=== PATIENT | female | born 1985 | race Caucasian/White ===

== ENCOUNTER 2020-03-31 22:04 | Emergency (ER) | payer BC, OTHER ==
[2020-03-31] MEDS ORDERED: ONDANSETRON INJ 4 MG/2 ML VIAL IV ONE (22:08)
[2020-03-31] MEDS ORDERED: HYDROmorphone HCL INJ 2 MG/ML VIAL IV ONE ×2 (22:08→23:05)
[2020-03-31] MEDS ORDERED: ONDANSETRON INJ 4 MG/2 ML VIAL ONE (22:10)
[2020-03-31] MEDS ORDERED: HYDROmorphone HCL INJ 2 MG/ML VIAL ONE ×2 (22:10→23:09)
[2020-03-31] MEDS ORDERED: ceFAZolin SODIUM 2 GM in SODIUM CHLORIDE 0.9% 100ML 100 ML IVPB ONE (22:13)
[2020-03-31] MEDS ORDERED: TETANUS-DIPHTHERIA TOXOIDS (TD) SYG IM ONE (22:14)
--- NOTE | 2020-03-31 22:17 | ED.PDOC ---
History of Present Illness - General Time Seen by Provider: 03/31/20 22:13 Additional Information: Patient is a 34-year-old female who presents to the ED with chief complaint of left ankle injury. Patient was walking on a dirt road and stepped on an irregular surface and rolled her ankle. Her entire weight came down on the ankle and she felt a pop and immediate pain. She is unable to weight-bear on the leg. Patient has no other injuries or no other symptoms other than severe ankle pain. - History of Present Illness Allergies/Adverse Reactions: Allergies NO KNOWN ALLERGY Allergy (Verified 07/03/15 08:57) Home Medications: Ambulatory Orders Lisdexamfetamine Dimesylate [Vyvanse] 40 mg PO DAILY 07/03/15 HYDROcodone 10MG/APAP 325MG [[place] 10325] 1 ea PO Q6H PRN #20 tab 03/31/20 Review of Systems - Review of Systems Constitutional: States: no symptoms reported EENTM: States: no symptoms reported Respiratory: States: no symptoms reported. Denies: cough, short of breath Cardiology: States: no symptoms reported. Denies: chest pain, palpitations Gastrointestinal/Abdominal: States: no symptoms reported. Denies: abdominal pain Musculoskeletal: States: see HPI, joint pain Skin: States: no symptoms reported All other Systems: Reviewed and Negative Past Medical History (General) - Vaccination History Hx Influenza Vaccination: Yes - 2014 - Social History Hx Tobacco Use: No Family Medical History - Family History Mother Family History: Unknown Living Status: Unknown Physical Exam - Physical Exam General Appearance: Alert, Obvious distress, Obese Eyes, Ears, Nose, Throat: normal ENT inspection Neck: supple, normal inspection Cardiovascular/Respiratory: regular rate, rhythm, no M/R/G, normal peripheral pulses, normal breath sounds, no respiratory distress Leg: normal inspection, non-tender Knee: normal inspection, non-tender, no evidence of injury Ankle: other - Obvious deformity to left ankle. Skin over the ankle mortise anteriorly has an abrasion versus a small laceration Foot: normal inspection, non-tender, no evidence of injury, other - 1+ DP pulse right foot. No palpable pulse appreciated in the left DP. Mental Status: alert, oriented x 3 Skin: normal color, warm/dry Progress - Progress Progress: 03/31/20 22:22 Differential diagnosis includes but is not limited to fracture, dislocation, sprain, vascular injury. 03/31/20 23:09 Patient's ankle easily reduced with gentle axial traction using procedural sedation with ketamine and propofol. The wound to the dorsum of the ankle was thoroughly cleaned with saline and the wound is a simple abrasion only, the skin is completely intact. Post-reduction exam reveals similar 1+ DP pulses bilaterally. Her capillary refill is less than 2 seconds. Patient placed in a short leg posterior splint. I discussed with patient and with that she has an unstable fracture and will require surgery. I will refer her to the local orthopedist, Dr. Monreal, and will call on Thursday to make an appointment for Thursday or Thursday for reevaluation and definitive management. I will discharge with analgesics. Vital signs stable, patient is NAD and looks clinically well and I believe is safe for discharge with outpatient follow-up. Follow-up instructions, discharge instructions and return to ED precautions discussed with patient. Patient voices understanding and willingness to comply with instructions. All questions answered. Patient and are happy with plan. Procedures - Joint Reduction left ankle Conscious Sedation: Yes - With ketamine and propofol, 0.5 mg/kg each. Reduction Attempts: 1 Pre-Procedure NV Exam: Yes Post Joint Reduction Film: joint reduced Departure - Departure Clinical Impression: Dislocation of ankle, left, closed Qualifiers: Encounter type: initial encounter Qualified Code(s): S93.05XA - Dislocation of left ankle joint, initial encounter Fracture of distal end of left fibula Qualifiers: Encounter type: initial encounter Fracture type: closed Fracture morphology: unspecified fracture morphology Qualified Code(s): S82.832A - Other fracture of upper and lower end of left fibula, initial encounter for closed fracture Time of Disposition: 23:16 Disposition: Discharge to Home or Self Care Condition: Good Instructions: Ankle Fracture (DC) Activity: other - Strict nonweightbearing to left foot and ankle. Keep the ankle elevated as much as possible. Referrals: Zev Monreal MD [Active Staff] - 1-2 Days (Call the referral orthopedic physician's office on Thursday morning to make an appointment for reevaluation on Thursday or Thursday.) Prescriptions: HYDROcodone 10MG/APAP 325MG [[place] 10/325] 1 ea PO Q6H PRN #20 tab PRN Reason: Pain Home Medications: Ambulatory Orders Lisdexamfetamine Dimesylate [Vyvanse] 40 mg PO DAILY 07/03/15 HYDROcodone 10MG/APAP 325MG [[place] ] 1 ea PO Q6H PRN #20 tab 03/31/20 Additional Instructions: As discussed, your ankle fracture will require surgery and it is very important that you follow-up with the orthopedic doctor as directed.
[2020-03-31] MEDS ORDERED: KETAMINE HCL 100 MG/ML VIAL IV ONE (22:20)
[2020-03-31] MEDS ORDERED: PROPOFOL 200 MG/20 ML VIAL IV ONE ×2 (22:20→22:23)
[2020-03-31] MEDS ORDERED: KETAMINE HCL 100 MG/ML VIAL ONE (22:23)
[2020-03-31] MEDS ORDERED: SODIUM CHLORIDE 0.9% 1000ML 1,000 ML ONE (22:24)
[2020-03-31] MEDS ORDERED: SODIUM CHLORIDE 0.9% 1000ML 1,000 ML IVS ONE (22:30)
[2020-03-31] MEDS ORDERED: ceFAZolin SODIUM 1 GM VIAL ONE (23:09)
[2020-03-31] MEDS ORDERED: HYDROCOD/APAP 10/325 (ER DISP) # 3 tablets PO ONE (23:30)
--- NOTE | 2020-03-31 23:41 | RAD ---
EXAM: X-ray ankle two views left CLINICAL DATA: Status post reduction TECHNICAL DATA: Two x-ray views of the left ankle were performed on 03/31/2020 at 11:18 PM. COMPARISONS: 03/31/2020 at 10:14 PM FINDINGS: Since the previous study there has been interval closed reduction of the displaced, comminuted angulated fracture through the distal fibular diaphysis. There is improved alignment of the fracture fragments without significant angulation or displacement at this time. The ankle joint appears intact. There is a tiny plantar spur. Bone mineralization is normal. IMPRESSION: Satisfactory closed reduction of the displaced, comminuted angulated fracture through the distal fibular diaphysis with improved alignment of the fracture fragments. Electronically signed by: Mariposa Wolf DO 03/31/2020 11:40 PM CDT
--- NOTE | 2020-03-31 23:44 | RAD ---
EXAM DESCRIPTION: Foot,Left 2 Views CLINICAL HISTORY: 34 years ,Female trauma COMPARISON: None. TECHNIQUE: LEFT foot, two view FINDINGS: There is an obliquely oriented fracture of the distal fibula. Soft tissue swelling around the ankle. No additional fracture in the foot. IMPRESSION: Obliquely oriented distal fibular fracture with mild posterior displacement Electronically signed by: Emma Guallpa MD 03/31/2020 11:43 PM CDT
--- NOTE | 2020-03-31 23:47 | RAD ---
EXAM DESCRIPTION: Ankle,Left 2 Views CLINICAL HISTORY: 34 years ,Female Trauma COMPARISON: 07/03/2015. TECHNIQUE: LEFT ankle, two view FINDINGS: There is a fracture of the distal fibular diaphysis with posterior angulation and displacement of the distal fracture fragments. A direct AP projection was not provided. There also appears to be dislocation of the foot with respect to the distal tibia with the foot displaced posteriorly and suspect laterally. Recommend AP view. IMPRESSION: Fracture dislocation at the ankle with dislocation of the foot with respect to the distal tibia as well as comminuted distal fibular diaphyseal fracture. Recommend AP view of the ankle Electronically signed by: Emma Guallpa MD 03/31/2020 11:46 PM CDT
[2020-03-31 23:56] VITALS: BP 126/80; TEMP 97.1; O2SAT 98
== END 2020-03-31 23:50 | disposition home or self-care (01) ==
LOC: ER 22:04
DX: S82.832A Other fracture of upper and lower end of left fibula, initial encounter for closed fracture (principal); X50.9XXA Other and unspecified overexertion or strenuous movements or postures, initial encounter; Y93.01 Activity, walking, marching and hiking; Y92.410 Unspecified street and highway as the place of occurrence of the external cause; Z23 Encounter for immunization

== ENCOUNTER 2020-04-10 05:31 | Day surgery (SDC) | payer BC, OTHER ==
[2020-04-10] MEDS ORDERED: SODIUM CHL 0.9% 100ML MINI-BAG 100 ML IVPB ONE (05:51)
[2020-04-10] MEDS ORDERED: ceFAZolin SODIUM 1 GM VIAL ONE ×2 (05:52→06:26)
[2020-04-10] MEDS ORDERED: LACTATED RINGERS 1,000 ML ONE (05:52)
[2020-04-10] MEDS ORDERED: BUPIVACAINE LIPOSOME 13.3 MG/ML VIAL INJ ONE ×3 (06:26→06:51)
[2020-04-10] MEDS ORDERED: BUPIVACAINE 0.5% 30 ML VIAL INJ ONE ×3 (06:26→06:51)
[2020-04-10] MEDS ORDERED: VANCOMYCIN HCL INJ 1,000 MG VIAL IVPB ONE ×4 (06:26→07:04)
[2020-04-10] MEDS ORDERED: DEXMEDETOMIDINE HCL 200 MCG/2 ML INJ IV ONE (06:33)
[2020-04-10] MEDS ORDERED: KETAMINE HCL 100 MG/ML VIAL ONE (06:33)
[2020-04-10] MEDS ORDERED: MIDAZOLAM INJ 5 MG/5 ML VIAL ONE (06:33)
[2020-04-10] MEDS ORDERED: FAMOTIDINE INJ 10 MG/ML VIAL IV ONE (06:33)
[2020-04-10] MEDS ORDERED: HYDROmorphone HCL INJ 2 MG/ML VIAL ONE ×2 (06:33→09:47)
[2020-04-10] MEDS ORDERED: LACTATED RINGERS 1,000 ML IVS ONE (06:38)
[2020-04-10] MEDS ORDERED: ceFAZolin SODIUM 1 GM VIAL IRRIG ONE ×2 (06:41→06:51)
[2020-04-10] MEDS ORDERED: diphenhydrAMINE HCL 50 MG/ML VIAL ONE (07:00)
[2020-04-10] MEDS ORDERED: PROPOFOL 200 MG/20 ML VIAL IV ONE (07:00)
[2020-04-10] MEDS ORDERED: MAGNESIUM SULFATE INJ 1 GM/2 ML VIAL ONE (07:00)
[2020-04-10] MEDS ORDERED: DEXAMETHASONE INJ 10 MG/ML VIAL ONE (07:00)
[2020-04-10] MEDS ORDERED: SODIUM CHLORIDE 0.9% 50 ML VIAL ONE (07:00)
[2020-04-10] MEDS ORDERED: LIDOCAINE 1% 10 ML VIAL INJ ONE (07:00)
[2020-04-10] MEDS ORDERED: SODIUM CHLORIDE 0.9% 250ML 250 ML ONE (07:22)
[2020-04-10] MEDS ORDERED: LACTATED RINGERS 600 ML IVS ONE (09:23)
[2020-04-10] MEDS ORDERED: fentaNYL CITRATE INJ 50 MCG/ML 2 ML AMP ONE (09:46)
--- NOTE | 2020-04-10 10:13 | RAD ---
EXAM DESCRIPTION: Left ankle, 2 radiographs CLINICAL HISTORY: Fracture fixation of the ankle FINDINGS/ IMPRESSION: Comparison 03/31/2020. Plate and screw fixation of the fibula with good anatomic alignment. 2 syndesmotic screws traverse the lower tibia Ankle mortise is symmetric. No focal osteochondral lesion of the ankle. Soft tissue swelling Electronically signed by: Geo Li MD 04/10/2020 10:11 AM CDT
[2020-04-10] MEDS ORDERED: HYDROcodone 5MG/APAP 325MG 1 EA TAB ONE (10:51)
[2020-04-10] MEDS ORDERED: HYDROcodone 5MG/APAP 325MG 1 EA TAB PO ONE (10:55)
[2020-04-10 12:08] VITALS: BP 138/85; TEMP 99.1; O2SAT 93
--- NOTE | 2020-04-11 09:08 | OP ---
DATE OF PROCEDURE: 04/10/20 PREOPERATIVE DIAGNOSIS: 1. Left distal fibula fracture with disruption of the syndesmosis. POSTOPERATIVE DIAGNOSIS: 1. Left distal fibula fracture with disruption of the syndesmosis. PROCEDURE: 1. ORIF of the fibula. SURGEON: Zev Monreal MD BICYCLE SUBASSEMBLER: Abhay Damon CST, SA-C ANESTHESIA: General. COMPLICATIONS: None. FINDINGS: Comminuted fracture of the distal fibular shaft with butterfly fragment. INDICATION: Ms. Mcmillan has a history of a twisting injury about a week before. She had the acute onset of pain at that time. After x-rays, she presented to my clinic and we discussed her condition as well as the risks, benefits and alternatives to operative therapy. She gave informed for ORIF. PROCEDURE: The patient was brought to the Operating Room and placed in supine position. General anesthesia was induced. The patient's leg was sterilely prepped and draped. An incision was made on the lateral aspect of the fibula directly in line with the fracture site. Careful dissection was used to expose the fracture site. Once this had been exposed and debrided, 2 lag screws from anterior to posterior were used to approximate the proximal [address] was paced on the most distal fragment and used to reduce the fracture in an anatomic position. The screw lengths were checked under fluoroscopic imaging. Once the plate had been applied and the screw holes filled, the ankle was stressed under direct fluoroscopic imaging. The syndesmosis did widen at the time and, therefore, I elected to place 2 syndesmosis screws from lateral to medial. After that, the ankle was again stressed and there was no widening of the mortise. The wound was very thoroughly irrigated and closed with a combination of running and interrupted subcuticular stitches. Sterile dressings were placed. The patient was placed in a splint, awoken from anesthesia and taken to Recovery. POSTOPERATIVE PLAN: I have talked to her about her weightbearing status which will be non-weightbearing for at likely 2 to 3 months. She will followup with us in 2 days for dressing change. #[id number] MTDD
--- NOTE | 2020-04-11 19:57 | RAD ---
EXAM DESCRIPTION: Fluoroscopy Up to 1Hr CLINICAL HISTORY: 34 years Female, ORIF LEFT ANKLE COMPARISON: Previous x-ray left ankle March 31, 2020 TECHNIQUE: Fluoroscopy time equals 54.9 seconds. Dose equals 2.05 mGy. FINDINGS: Plate and screws in the left ankle stabilizing distal fibular fracture. Screws through the distal fibula and tibial metaphysis. No hardware complication. Improved anatomic alignment compared to previous films. Frontal and lateral spot film images submitted. IMPRESSION: Spot film images obtained during internal fixation of left ankle fracture or dislocation. Electronically signed by: Wilbert Ca MD 04/11/2020 7:55 PM CDT
== END 2020-04-10 11:55 | disposition home or self-care (01) ==
LOC: AMB 05:31
PROVIDERS: ATTEND Orthopaedic Surgery
DX: S82.452A Displaced comminuted fracture of shaft of left fibula, initial encounter for closed fracture (principal)
CPT/HCPCS: 01480; 27784; 36415; 73600; 76000; 80048; 80307; 81001; 81025; 85025; 87070; 87086; 93005; C1713; J0690; J1170; J2250; J3370; J3490; J7050; J7120

== ENCOUNTER → 2020-04-19 | Outpatient (CLI) | payer BC ==
--- NOTE | 2020-04-20 11:07 | RAD ---
EXAM DESCRIPTION: Ankle,Left 3 Views CLINICAL HISTORY: 34 years Female, CLOSED FRACTURE OF DISTAL LEFT FIBULA COMPARISON: 04/10/2020 TECHNIQUE: 3 view radiograph of the left ankle. IMPRESSION: Unchanged screw-plate fixation traversing a distal fibular fracture with [address]. No radiographic evidence for hardware competition. There is no increased sclerosis along the fracture suggestive of healing. Lucent fracture line remains visible. Symmetric ankle mortise. Intact talar dome. Small calcaneal enthesophytes at the plantar fascia and Achilles tendon insertion. Generalized soft tissue swelling. Electronically signed by: Prosper Taylor MD 04/20/2020 11:06 AM CDT
== END ==
LOC: RAD 10:40
PROVIDERS: ATTEND Orthopaedic Surgery
DX: S82.842D Displaced bimalleolar fracture of left lower leg, subsequent encounter for closed fracture with routine healing (principal); Z98.890 Other specified postprocedural states; M77.32 Calcaneal spur, left foot; M79.9 Soft tissue disorder, unspecified

== ENCOUNTER → 2020-05-31 | Outpatient (CLI) | payer BC ==
--- NOTE | 2020-05-31 14:15 | RAD ---
EXAM DESCRIPTION: Ankle,Left 3 Views CLINICAL HISTORY: CLOSED FX OF LATERAL MALLEOLUS COMPARISON: April 19, 2020 IMPRESSION: 3 views of the left ankle again demonstrates lateral plate and screw fixation of the mid to distal fibula fracture with orthopedic screw fixation to the distal tibia. No hardware failure or loosening. Mild periosteal reaction is seen with mild indistinctness of the fracture line lucencies suggesting minimal partial interval healing. No new fracture or dislocation. Ankle mortise appears maintained. Soft tissues are unremarkable. Small plantar enthesophyte of the calcaneus is seen with small enthesophyte at the attachment of the Achilles tendon. Electronically signed by: Vijay Onofre MD 05/31/2020 2:13 PM [facility]
== END ==
LOC: RAD 09:39
PROVIDERS: ATTEND Orthopaedic Surgery
DX: S82.62XD Displaced fracture of lateral malleolus of left fibula, subsequent encounter for closed fracture with routine healing (principal); Z98.890 Other specified postprocedural states; M76.9 Unspecified enthesopathy, lower limb, excluding foot

== ENCOUNTER → 2020-06-25 | Outpatient (CLI) | payer BC ==
--- NOTE | 2020-06-25 16:44 | RAD ---
EXAM DESCRIPTION: Ankle,Left 3 Views CLINICAL HISTORY: 35 years Female, DISPLACED FRACTURE OF LATERAL MALLEOLUS LEFT OF FIBULA COMPARISON: 05/31/2020 Findings: 3 view(s)/radiograph(s) Healing internally fixated distal left fibular fracture. No hardware complication. No acute fracture is identified. No dislocation. The talar dome is unremarkable. Ankle mortise is symmetric. IMPRESSION: Healing internally fixated distal left fibular fracture. Electronically signed by: Boby Bassett MD 06/25/2020 4:43 PM [facility]
== END ==
LOC: RAD 10:29
PROVIDERS: ATTEND Orthopaedic Surgery
DX: S82.62XD Displaced fracture of lateral malleolus of left fibula, subsequent encounter for closed fracture with routine healing (principal); Z98.890 Other specified postprocedural states

== ENCOUNTER → 2020-08-03 | Outpatient (CLI) | payer BC ==
--- NOTE | 2020-08-03 16:15 | RAD ---
EXAM DESCRIPTION: Ankle x-ray,Left 3 Views CLINICAL HISTORY: 35 years, Female, FX OF LEFT ANKLE COMPARISON: Previous x-ray left ankle June 25, 2020 TECHNIQUE: AP/lateral/oblique of the left ankle FINDINGS: Plate and screws in the distal fibula across oblique fracture of the distal diaphysis with periosteal new bone formation consistent with partial healing. Rarefaction around the distal screws across the fibula and tibia consistent with mild periscrew osteolysis. Intact medial and lateral malleolus with normal anatomic alignment at the ankle. Soft tissue swelling is more prominent medially than laterally. Talar dome appears intact. Lateral view shows intact talus and calcaneus. Prominent dorsal and plantar calcaneal spurring. IMPRESSION: Plate and screw fixation of distal left fibular fracture. Electronically signed by: Wilbert Ca MD 08/03/2020 4:13 PM [facility]
== END ==
LOC: RAD 07:54
PROVIDERS: ATTEND Orthopaedic Surgery
DX: S82.842D Displaced bimalleolar fracture of left lower leg, subsequent encounter for closed fracture with routine healing (principal); Z98.890 Other specified postprocedural states